=== PATIENT | male | born 1985 | race American Indian/Alaskan Native ===

== ENCOUNTER 2021-09-17 08:47 | Inpatient (IN) | payer SELFPAY ==
[2021-09-17] MEDS ORDERED: SODIUM CHLORIDE 0.9% 1000 ML 1,000 ML IV ONE (09:04)
[2021-09-17] MEDS ORDERED: ONDANSETRON 4 MG/2 ML INJ IV ONE (09:04)
[2021-09-17] MEDS ORDERED: KETOROLAC 30 MG/1 ML INJ IV ONE (09:04)
[2021-09-17 09:35] LABS: Basophils % (Auto) 0.6 % (0.0-1.8); Eosinophils # (Auto) 0.5 K/mm3 (0.0-0.4); Eosinophils % (Auto) 7.7 % (0.0-4.3); Hematocrit 46.1 % (35.5-45.6); Hemoglobin 15.4 gm/dl (11.8-15.2); Lymphocytes # (Auto) 1.1 K/mm3 (1.2-5.4); Lymphocytes % (Auto) 18.1 % (13.4-35.0); Mean Corpuscular HGB Conc 33 % (32-34); Mean Corpuscular Volume 96 fl (84-94); Monocytes # (Auto) 0.5 K/mm3 (0.0-0.8); Monocytes % (Auto) 8.2 % (0.0-7.3); Platelet Count 323 K/mm3 (140-440); Red Blood Count 4.78 M/mm3 (3.65-5.03); Red Cell Distribution Width 15.1 % (13.2-15.2)
[2021-09-17 09:54] LABS: INR 1.03 (0.87-1.13)
[2021-09-17 10:05] LABS: BUN/Creatinine Ratio 8; Blood Urea Nitrogen 6 mg/dL (9-20); Calcium 9.8 mg/dL (8.4-10.2); Hemolysis Index 23
[2021-09-17] MEDS ORDERED: MORPHINE 4 MG/1 ML INJ IV ONE (10:56)
--- NOTE | 2021-09-17 10:56 | Cat Scan Report ---
CT ABDOMEN AND PELVIS WITHOUT CONTRAST INDICATION: pain WO CONTRAST. TECHNIQUE: Axial CT images were obtained through the abdomen and pelvis without IV contrast. All CT scans at [facility] location are performed using CT dose reduction for ALARA by means of automated exposure control. COMPARISON: None available. FINDINGS: LOWER CHEST: No significant abnormality. LIVER: Surgical clips anterior hepatic segment peripheral portion. No definite mass seen on this nonc ontrast study GALLBLADDER: No significant abnormality. BILE DUCTS: No significant abnormality. PANCREAS: No significant abnormality. SPLEEN: No significant abnormality. ADRENALS: No significant abnormality. RIGHT KIDNEY and URETER: No significant abnormality. LEFT KIDNEY and URETER: No significant abnormality. STOMACH and SMALL BOWEL: Fluid-filled moderately dilated loops of proximal small bowel with collapse of mid to distal small bowel COLON: No significant abnormality. APPENDIX: Normal PERITONEUM: Small amount of free pelvic fluid. No free air. No fluid collection. LYMPH NODES: No significant adenopathy. AORTA and ARTERIES: No significant abnormality. IVC and VEINS: No significant abnormality. URINARY BLADDER: No significant abnormality. REPRODUCTIVE ORGANS: No significant abnormality. ADDITIONAL FINDINGS: None. SKELETAL SYSTEM: No significant abnormality. IMPRESSION: 1. Partial mid small bowel obstruction. 2. Small amount of free pelvic fluid. 3. Surgical clips anterior hepatic segment. Please correlate with past medical/surgical history. Signer Name: Chay Hall MD Signed: 09/17/2021 10:51 AM Workstation Name: [id number]
[2021-09-17] MEDS ORDERED: MORPHINE 2 MG/1 ML INJ IV ONE (12:47)
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
[2021-09-17] MEDS ORDERED: ACETAMINOPHEN 325 MG TAB PO PRN (13:23)
[2021-09-17] MEDS ORDERED: ALBUTEROL 2.5 MG/3 ML NEBU IH PRN (13:23)
[2021-09-17] MEDS ORDERED: ONDANSETRON 4 MG/2 ML INJ IV PRN (13:23)
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
[2021-09-17] MEDS: HYDROmorphone 0.5 MG/0.5 ML INJ IV PRN ×2 (14:58→23:15)
[2021-09-17] MEDS: SODIUM CHLORIDE 0.9% 1000 ML 1,000 ML IV SCH ×2 (15:50→23:15)
[2021-09-17] MEDS: oxyCODONE /ACETAMINOPHEN 5-325MG TAB PO PRN (18:04)
[2021-09-18 06:05] LABS: Basophils # (Auto) 0.1 K/mm3 (0.0-0.1); Basophils % (Auto) 0.9 % (0.0-1.8); Eosinophils # (Auto) 0.5 K/mm3 (0.0-0.4); Hematocrit 40.6 % (35.5-45.6); Hemoglobin 13.6 gm/dl (11.8-15.2); Lymphocytes # (Auto) 2.1 K/mm3 (1.2-5.4); Lymphocytes % (Auto) 34.6 % (13.4-35.0); Mean Corpuscular HGB Conc 34 % (32-34); Mean Corpuscular Volume 97 fl (84-94); Monocytes # (Auto) 0.6 K/mm3 (0.0-0.8); Monocytes % (Auto) 9.3 % (0.0-7.3); Platelet Count 295 K/mm3 (140-440); Red Blood Count 4.21 M/mm3 (3.65-5.03); Red Cell Distribution Width 14.7 % (13.2-15.2)
[2021-09-18] MEDS: SODIUM CHLORIDE 0.9% 1000 ML 1,000 ML IV SCH ×3 (06:06→22:38)
[2021-09-18] MEDS: oxyCODONE /ACETAMINOPHEN 5-325MG TAB PO PRN ×3 (06:13→20:12)
[2021-09-18 06:25] LABS: BUN/Creatinine Ratio 6; Blood Urea Nitrogen 5 mg/dL (9-20); Calcium 8.8 mg/dL (8.4-10.2); Hemolysis Index 8
[2021-09-18 06:43] LABS: Bacteria,Urine 1+ /HPF (Negative); Mucus,Urine FEW /HPF
[2021-09-18 06:44] LABS: Amphetamine Screen,Urine Negative; Benzodiazepines Screen,Urine Negative; Cannabinoid Screen,Urine Negative; Methadone Screen,Urine Negative
[2021-09-18 06:46] LABS: Bilirubin,Urine Negative (Negative); Blood,Urine Negative (Negative); Color,Urine Yellow (Yellow); Protein,Urine <15 mg/dL mg/dL (Negative); Urobilinogen,Urine < 2.0 mg/dL (<2.0)
[2021-09-18 06:57] LABS: Cocaine Screen,Urine Positive; Opiate Screen,Urine Positive
[2021-09-18] MEDS: HYDROmorphone 0.5 MG/0.5 ML INJ IV PRN ×3 (08:52→22:34)
--- NOTE | 2021-09-18 08:59 | XRay Report ---
ABDOMEN 2 VIEWS INDICATION / CLINICAL INFORMATION: Partial small bowel obstruction. COMPARISON: CT dated 09/17/21 FINDINGS: TUBES / LINES: None. BOWEL GAS PATTERN: Mildly dilated loops of proximal small bowel in the left upper quadrant with inter timmy improvement. Normal amount of fecal material and gas in the colon. FREE AIR / EXTRALUMINAL GAS: None seen. ADDITIONAL FINDINGS: No significant additional findings. CHEST: Visualized chest shows no significant abnormality. IMPRESSION: 1. Interval improvement in small bowel dilatation since prior study. Signer Name: Sasha Dockery MD Signed: 09/18/2021 8:54 AM Workstation Name: [id number]
--- NOTE | 2021-09-18 10:05 | Progress Note ---
Assessment and Plan - Patient Problems (1) SBO (small bowel obstruction) Current Visit: Yes Status: Acute Plan to address problem: 1) Improving 2) CLD 3) CBC, BMP and AXR in the am. Can probably be discharged tomorrow if there are no issues. 4) I will be out of town beginning this evening. Dr. Gibbs will round on pt beginning tomorrow. Subjective Date of service: 09/18/21 Patient Reports: Positive: no new complaints, feels better, flatus (Has passed flatus several times. ), no bowel movement Objective Vital Signs - 12hr 09/18/21 09/18/21 09/18/21 00:00 06:03 06:13 Temperature 98.1 F Pulse Rate 81 Respiratory 17 17 17 Rate Blood Pressure 120/64 O2 Sat by Pulse 97 98 Oximetry 09/18/21 07:13 Temperature Pulse Rate Respiratory 18 Rate Blood Pressure O2 Sat by Pulse Oximetry - Abdomen not tender, not distended Hernia: none - Labs 09/18/21 04:54 09/18/21 04:54 Diabetes panel 09/17/21 09/18/21 Range/Units 09:23 04:54 Sodium 142 145 (137-145) mmol/L Potassium 3.1 L 3.2 L (3.6-5.0) mmol/L Chloride 99.0 105.9 (98-107) mmol/L Carbon Dioxide 28 29 (22-30) mmol/L BUN 6 L 5 L (9-20) mg/dL Creatinine 0.8 0.9 (0.8-1.3) mg/dL Glucose 89 77 (75-100) mg/dL Calcium 9.8 8.8 (8.4-10.2) mg/dL Calcium panel 09/17/21 09/18/21 Range/Units 09:23 04:54 Calcium 9.8 8.8 (8.4-10.2) mg/dL Pituitary panel 09/17/21 09/18/21 Range/Units 09:23 04:54 Sodium 142 145 (137-145) mmol/L Potassium 3.1 L 3.2 L (3.6-5.0) mmol/L Chloride 99.0 105.9 (98-107) mmol/L Carbon Dioxide 28 29 (22-30) mmol/L BUN 6 L 5 L (9-20) mg/dL Creatinine 0.8 0.9 (0.8-1.3) mg/dL Glucose 89 77 (75-100) mg/dL Calcium 9.8 8.8 (8.4-10.2) mg/dL Adrenal panel 09/17/21 09/18/21 Range/Units 09:23 04:54 Sodium 142 145 (137-145) mmol/L Potassium 3.1 L 3.2 L (3.6-5.0) mmol/L Chloride 99.0 105.9 (98-107) mmol/L Carbon Dioxide 28 29 (22-30) mmol/L BUN 6 L 5 L (9-20) mg/dL Creatinine 0.8 0.9 (0.8-1.3) mg/dL Glucose 89 77 (75-100) mg/dL Calcium 9.8 8.8 (8.4-10.2) mg/dL - Imaging Abdominal x-ray: report reviewed
--- NOTE | 2021-09-18 17:40 | Progress Note ---
Assessment and Plan Assessment and plan: --SBO (small bowel obstruction) Serial abdominal exam, CT scan abdomen pelvis, surgery team consulted. Patient declined NG tube for nasogastric decompression. Pain control, supportive care. Bowel rest. Patient had some flatus no bowel movement denies nausea vomiting, Follow-up abdominal x-ray today; 09/19/2019 significant improvement of his dilated small bowel Surgeon has started clear liquids, advance as tolerated Possible discharge in 1 to 2 days if stable Increase ambulation --Abdominal pain Serial abdominal pain, bowel rest, supportive care, IV fluid resuscitation therapy. --Chronic pain syndrome; Pain management, supportive care - DVT prophylaxis SCD to bilateral lower extremities while in bed --Advance care planning Disease education done, care plan discussed, diagnoses discussed, prognosis discussed, patient is full code. Patient knowledges understanding agreement with care plan, +30 minutes. --Preventative health care Patient counseled regarding small frequent meals, outpatient follow-up with primary care physician for all age and risk factor appropriate screening test. +30 minutes. Closely monitor the patient and adjust management as needed Plan of care reviewed with the patient and his nurse Surgery evaluation recommendations noted and appreciated 09/18/2021; Follow-up abdominal x-ray significant improvement of small bowel obstruction Surgery started clear liquids, advance as tolerated tomorrow Possible discharge if SBO improved/resolved Hypokalemia, replenished with 40 mEq KCl monitor potassium and magnesium History Interval history: Have seen and examined the patient at the bedside Patient's chart and medications reviewed Patient was admitted with small bowel obstruction Patient had some flatus today. no bowel movement Surgery evaluated the patient started on clear liquids Patient complains of vague abdominal pain asking for more pain medications Vital signs noted Hospitalist Physical - Constitutional Vitals: Temp Pulse Resp BP Pulse Ox 98.1 F 81 18 120/64 98 09/18/21 06:03 09/18/21 06:03 09/18/21 07:13 09/18/21 06:03 09/18/21 06:03 General appearance: Present: mild distress, well-nourished - EENT Eyes: Present: PERRL, EOM intact - Neck Neck: Present: supple, normal ROM - Respiratory Respiratory effort: normal Respiratory: bilateral: diminished, negative: rales, rhonchi, wheezing - Cardiovascular Rhythm: regular Heart Sounds: Present: S1 & S2 - Extremities Extremities: no ischemia, No edema - Abdominal General gastrointestinal: soft, non-tender, non-distended, normal bowel sounds - Integumentary Integumentary: Present: clear, warm - Psychiatric Psychiatric: appropriate mood/affect, cooperative - Neurologic Neurologic: CNII-XII intact, moves all extremities Results - Labs CBC & Chem 7: 09/18/21 04:54 09/18/21 04:54 Labs: Laboratory Last Values WBC 6.0 K/mm3 (4.5-11.0) 09/18/21 04:54 RBC 4.21 M/mm3 (3.65-5.03) 09/18/21 04:54 Hgb 13.6 gm/dl (11.8-15.2) 09/18/21 04:54 Hct 40.6 % (35.5-45.6) 09/18/21 04:54 MCV 97 fl (84-94) H 09/18/21 04:54 MCH 32 pg (28-32) 09/18/21 04:54 MCHC 34 % (32-34) 09/18/21 04:54 RDW 14.7 % (13.2-15.2) 09/18/21 04:54 Plt Count 295 K/mm3 (140-440) 09/18/21 04:54 Lymph % (Auto) 34.6 % (13.4-35.0) 09/18/21 04:54 [place] % (Auto) 9.3 % (0.0-7.3) H 09/18/21 04:54 Eos % (Auto) 8.0 % (0.0-4.3) H 09/18/21 04:54 Baso % (Auto) 0.9 % (0.0-1.8) 09/18/21 04:54 Lymph # (Auto) 2.1 K/mm3 (1.2-5.4) 09/18/21 04:54 [place] # (Auto) 0.6 K/mm3 (0.0-0.8) 09/18/21 04:54 Eos # (Auto) 0.5 K/mm3 (0.0-0.4) H 09/18/21 04:54 Baso # (Auto) 0.1 K/mm3 (0.0-0.1) 09/18/21 04:54 Seg Neutrophils % 47.2 % (40.0-70.0) 09/18/21 04:54 Seg Neutrophils # 2.8 K/mm3 (1.8-7.7) 09/18/21 04:54 PT 14.6 Sec. (12.2-14.9) 09/17/21 09:23 INR 1.03 (0.87-1.13) 09/17/21 09:23 Sodium 145 mmol/L (137-145) 09/18/21 04:54 Potassium 3.2 mmol/L (3.6-5.0) L 09/18/21 04:54 Chloride 105.9 mmol/L (98-107) 09/18/21 04:54 Carbon Dioxide 29 mmol/L (22-30) 09/18/21 04:54 Anion Gap 13 mmol/L 09/18/21 04:54 BUN 5 mg/dL (9-20) L 09/18/21 04:54 Creatinine 0.9 mg/dL (0.8-1.3) 09/18/21 04:54 Estimated GFR > 60 ml/min 09/18/21 04:54 BUN/Creatinine Ratio 6 % 09/18/21 04:54 Glucose 77 mg/dL (75-100) 09/18/21 04:54 Calcium 8.8 mg/dL (8.4-10.2) 09/18/21 04:54 Total Creatine Kinase 268 units/L (55-170) H 09/17/21 09:23 C-Reactive Protein 0.60 mg/dL (0.00-1.30) 09/17/21 09:23 Amylase 80 units/L (27-131) 09/17/21 09:23 Lipase 19 units/L (13-60) 09/17/21 09:23 Urine Color Yellow (Yellow) 09/18/21 06:00 Urine Turbidity Slightly cloudy (Clear) 09/18/21 06:00 Urine pH 8.0 (5.0-7.0) H 09/18/21 06:00 Ur Specific [place] 1.020 (1.003-1.030) 09/18/21 06:00 Urine Protein <15 mg/dl mg/dL (Negative) 09/18/21 06:00 Urine Glucose (UA) Negative mg/dL (Negative) 09/18/21 06:00 Urine Ketones Trace mg/dL (Negative) 09/18/21 06:00 Urine Blood Negative (Negative) 09/18/21 06:00 Urine Nitrite Negative (Negative) 09/18/21 06:00 Ur Reducing Substances Not Reportable 09/18/21 06:00 Urine Bilirubin Negative (Negative) 09/18/21 06:00 Urine Ictotest Not Reportable 09/18/21 06:00 Urine Urobilinogen < 2.0 mg/dL (<2.0) 09/18/21 06:00 Ur Leukocyte Esterase Negative (Negative) 09/18/21 06:00 Urine WBC (Auto) 2.0 /HPF (0.0-6.0) 09/18/21 06:00 Urine RBC (Auto) 2.0 /HPF (0.0-6.0) 09/18/21 06:00 Urine Bacteria (Auto) 1+ /HPF (Negative) 09/18/21 06:00 Urine Mucus Few /HPF 09/18/21 06:00 Urine Opiates Screen Positive 09/18/21 06:00 Urine Methadone Screen Negative 09/18/21 06:00 Ur Barbiturates Screen Negative 09/18/21 06:00 Ur Phencyclidine Scrn Negative 09/18/21 06:00 Ur Amphetamines Screen Negative 09/18/21 06:00 U Benzodiazepines Scrn Negative 09/18/21 06:00 Urine Cocaine Screen Positive 09/18/21 06:00 U Marijuana (THC) Screen Negative 09/18/21 06:00 Drugs of Abuse Note Disclamer 09/18/21 06:00 [place]/IV: Voiding Method Toilet Active Medications - Current Medications Current Medications: Generic Name Dose Route Start Last Admin Trade Name Freq PRN Reason Stop Dose Admin Acetaminophen 650 mg 09/17/21 13:23 Acetaminophen 325 Mg Tab PO Q4H PRN Pain MILD(1-3)/Fever >100.5/DREW Albuterol 2.5 mg 09/17/21 13:23 Albuterol 2.5 Mg/3 Ml Nebu IH Q4HRT PRN Shortness Of Breath Hydromorphone HCl 0.5 mg 09/18/21 16:19 09/18/21 16:32 Hydromorphone 0.5 Mg/0.5 Ml Inj IV 0.5 mg Q6H PRN Administration Pain , Severe (7-10) Sodium Chloride 1,000 mls @ 125 mls/hr 09/17/21 13:30 09/18/21 16:27 Nacl 0.9% 1000 Ml IV 125 mls/hr DIRECT AMANDA Administration Ondansetron HCl 4 mg 09/17/21 13:23 09/17/21 18:04 Ondansetron 4 Mg/2 Ml Inj IV 4 mg Q8H PRN Administration Nausea And Vomiting Oxycodone/Acetaminophen 1 tab 09/18/21 16:18 Oxycodone /Acetaminophen 5-325mg Tab PO Q4H PRN Pain, Moderate (4-6) Sodium Chloride 10 ml 09/17/21 22:00 09/18/21 09:31 Sodium Chloride 0.9% 10 Ml Flush Syringe IV 10 ml BID AMANDA Administration Sodium Chloride 10 ml 09/17/21 13:23 Sodium Chloride 0.9% 10 Ml Flush Syringe IV PRN PRN LINE FLUSH
[2021-09-18] MEDS ORDERED: POTASSIUM CHLORIDE ER 20 MEQ TAB PO SCH (17:49)
[2021-09-19] MEDS: oxyCODONE /ACETAMINOPHEN 5-325MG TAB PO PRN ×2 (00:23→10:35)
[2021-09-19 05:37] LABS: Hematocrit 38.4 % (35.5-45.6); Hemoglobin 12.6 gm/dl (11.8-15.2); Mean Corpuscular HGB Conc 33 % (32-34); Mean Corpuscular Volume 98 fl (84-94); Platelet Count 266 K/mm3 (140-440); Red Blood Count 3.93 M/mm3 (3.65-5.03); Red Cell Distribution Width 14.9 % (13.2-15.2)
[2021-09-19] MEDS: HYDROmorphone 0.5 MG/0.5 ML INJ IV PRN ×2 (05:39→12:17)
[2021-09-19 05:50] VITALS: BP 124/88
[2021-09-19 05:59] LABS: BUN/Creatinine Ratio 6; Blood Urea Nitrogen 5 mg/dL (9-20); Calcium 8.6 mg/dL (8.4-10.2); Hemolysis Index 8
[2021-09-19 06:25] LABS: Total Cells Counted 100
[2021-09-19 06:26] LABS: Basophils % (Manual) 0 % (0.0-1.8)
[2021-09-19 06:27] LABS: Platelet Estimate Consistent w Auto
--- NOTE | 2021-09-19 09:55 | XRay Report ---
ABDOMEN 2 VIEWS INDICATION / CLINICAL INFORMATION: sbo. COMPARISON: Abdominal series from 09/18/2021. FINDINGS: TUBES / LINES: None. BOWEL GAS PATTERN: No small bowel dilatation is seen to suggest a small bowel obstruction. The colon is not significantly dilated. Gas is seen along the majority of the colon. FREE AIR / EXTRALUMINAL GAS: None seen. ADDITIONAL FINDINGS: No significant additional findings. CHEST: Visualized chest shows no significant abnormality. IMPRESSION: No radiographic evidence of a small bowel obstruction or other significant abnormalities. Signer Name: John Cannon MD Signed: 09/19/2021 9:51 AM Workstation Name: [id number]
--- NOTE | 2021-09-19 11:16 | Discharge Summary ---
Providers - Providers Date of Admission: 09/17/21 13:24 Date of discharge: 09/19/21 Attending physician: MEHDI ONTIVEROS 09/17/21 13:23 Consult to Physician [CONS] Stat Comment: Consulting Provider: DEBBIE GONZALES Physician Instructions: Reason For Exam: SBO Primary care physician: CUSTOMER SUPPORT ADVISOR Hospitalization Condition: Stable Pertinent studies: CT abdomen and pelvis; partial or mid small bowel obstruction small amount of free pelvic fluid surgical clips anterior hepatic segment surgical history Follow-up abdominal x-ray 09/18 Interval improvement in small bowel dilation since prior study Follow-up abdominal x-ray 09/19 no radiographic evidence of small bowel obstruction or other significant abnormalities Hospital course: --SBO (small bowel obstruction) Serial abdominal exam, CT scan abdomen pelvis, surgery team consulted. Patient declined NG tube for nasogastric decompression. Pain control, supportive care. Bowel rest. Patient had some flatus no bowel movement denies nausea vomiting, Follow-up abdominal x-ray today; 09/19/2019 significant improvement of his dilated small bowel Surgeon has started clear liquids, advance as tolerated Possible discharge in 1 to 2 days if stable Increase ambulation --Abdominal pain Serial abdominal pain, bowel rest, supportive care, IV fluid resuscitation therapy. --Hypokalemia; replenished and corrected Closely monitor electrolytes -Chronic pain syndrome; Pain management, supportive care Disposition: 01 HOME / SELF CARE / HOMELESS Final Discharge Diagnosis (Prints w/discharge instructions): Small bowel obstruction resolved. Abdominal pain resolved. Hypokalemia corrected. Chronic pain syndrome supportive care. Hypokalemia corrected Time spent for discharge: 35 min Core Measure Documentation - Palliative Care Palliative Care/ Comfort Measures: Not Applicable - Core Measures Any of the following diagnoses?: none Exam - Constitutional Vitals: Temp Pulse Resp BP Pulse Ox 98.2 F 72 17 124/88 100 09/19/21 05:44 09/19/21 05:44 09/19/21 05:44 09/19/21 05:44 09/19/21 08:23 General appearance: Present: no acute distress, well-nourished - EENT Eyes: Present: PERRL, EOM intact - Neck Neck: Present: supple, normal ROM - Respiratory Respiratory effort: normal Respiratory: bilateral: diminished, negative: rales, rhonchi, wheezing - Cardiovascular Rhythm: regular Heart Sounds: Present: S1 & S2 - Extremities Extremities: no ischemia, No edema - Abdominal General gastrointestinal: Present: soft, non-tender, non-distended, normal bowel sounds - Integumentary Integumentary: Present: clear, warm - Musculoskeletal Musculoskeletal: strength equal bilaterally - Psychiatric Psychiatric: appropriate mood/affect, cooperative - Neurologic Neurologic: moves all extremities Plan Activity: no restrictions Diet: other ( soft diet, advance as tolerated) Additional Instructions: If you have worsening symptoms contact MD or go to the nearest emergency room as needed. Advance diet as tolerated Follow up with: PRIMARY CARE, [Primary Care Provider] - 3-5 Days DEBBIE GONZALES MD [Staff Physician] - 10 Days Prescriptions: oxyCODONE /ACETAMINOPHEN [Percocet 5/325] 1 tab PO TID #6 Pantoprazole [Protonix TAB] 20 mg PO DAILY #10 Ondansetron [Zofran Odt] 4 mg PO Q8HR #15 tab.rapdis
--- NOTE | 2021-09-19 13:13 | Progress Note ---
Assessment and Plan 35 yo M with SBO - resolved AXR - no obstruction Labs - WBC and lytes ok Plan: 1. adv diet as milly - pt should remain on soft diet upon dc for 3-4 days 2. OK to dc home Thank you, please call with questions. Subjective Date of service: 09/19/21 Narrative: Pt seen and examined. No acute complaints. Milly diet. Objective Vital Signs - 12hr 09/19/21 09/19/21 09/19/21 01:23 02:00 05:44 Temperature 98.2 F Pulse Rate 72 Respiratory 17 17 17 Rate Blood Pressure 124/88 O2 Sat by Pulse 98 98 Oximetry 09/19/21 08:23 Temperature Pulse Rate Respiratory Rate Blood Pressure O2 Sat by Pulse 100 Oximetry - General physical appearance Narrative Exam: Gen: AOx3. NAD CV: S1, S2+ Resp: even and unlabored Abd: soft, ND, NT Ext: no c/c/e - Labs 09/19/21 04:18 09/19/21 04:18 Diabetes panel 09/19/21 Range/Units 04:18 Sodium 143 (137-145) mmol/L Potassium 3.6 (3.6-5.0) mmol/L Chloride 108.7 H (98-107) mmol/L Carbon Dioxide 26 (22-30) mmol/L BUN 5 L (9-20) mg/dL Creatinine 0.8 (0.8-1.3) mg/dL Glucose 73 L (75-100) mg/dL Calcium 8.6 (8.4-10.2) mg/dL Calcium panel 09/19/21 Range/Units 04:18 Calcium 8.6 (8.4-10.2) mg/dL Pituitary panel 09/19/21 Range/Units 04:18 Sodium 143 (137-145) mmol/L Potassium 3.6 (3.6-5.0) mmol/L Chloride 108.7 H (98-107) mmol/L Carbon Dioxide 26 (22-30) mmol/L BUN 5 L (9-20) mg/dL Creatinine 0.8 (0.8-1.3) mg/dL Glucose 73 L (75-100) mg/dL Calcium 8.6 (8.4-10.2) mg/dL Adrenal panel 09/19/21 Range/Units 04:18 Sodium 143 (137-145) mmol/L Potassium 3.6 (3.6-5.0) mmol/L Chloride 108.7 H (98-107) mmol/L Carbon Dioxide 26 (22-30) mmol/L BUN 5 L (9-20) mg/dL Creatinine 0.8 (0.8-1.3) mg/dL Glucose 73 L (75-100) mg/dL Calcium 8.6 (8.4-10.2) mg/dL
[2021-09-19] MEDS ORDERED: oxyCODONE /ACETAMINOPHEN 5-325MG TAB PO ONE (13:28)
[2021-09-19] MEDS ORDERED: DOCUSATE SODIUM 100 MG CAP PO ONE (13:28)
== END 2021-09-19 15:05 | disposition home or self-care (01) | DRG 390 ==
LOC: ED 08:47 → 3A 13:24
PROVIDERS: ADMIT Internal Medicine; ATTEND Internal Medicine
DX: K56.699 Other intestinal obstruction unspecified as to partial versus complete obstruction (principal); G89.4 Chronic pain syndrome; E87.6 Hypokalemia; Z82.49 Family history of ischemic heart disease and other diseases of the circulatory system
CPT/HCPCS: 36415; 74019; 74176; 80048; 80307; 81001; 82150; 82550; 83690; 83735; 85007; 85025; 85610; 86140; 99406; G0378; J1170; J1885; J2270; J2405; J7030